=== PATIENT | male | born 1965 | race African-American/Black ===

== ENCOUNTER 2017-02-16 13:21 | Emergency (ER) | payer SELFPAY ==
[~2017-02-16] VITALS: Ht 175.3 cm; Wt 77.0 kg
[2017-02-16 15:33] VITALS: BP 132/90
== END 2017-02-16 20:35 | disposition left against medical advice (07) ==
LOC: ER 13:26
DX: E11.65 Type 2 diabetes mellitus with hyperglycemia (principal); E78.00 Pure hypercholesterolemia, unspecified
CPT/HCPCS: 82962